=== PATIENT | male | born 1965 | race Caucasian/White ===

== ENCOUNTER 2021-01-14 09:38 | Outpatient (REF) | payer MEDICAID, SELFPAY ==
--- NOTE | ~2021-01-14 | US_ITS ---
EXAMINATION: US ABDOMEN COMPLETE CLINICAL INFORMATION: Abnormal findings of blood chemistry. COMPARISON: None. TECHNIQUE: Real-time imaging of the abdominal viscera. FINDINGS: PANCREAS: Slightly heterogeneous parenchyma without associated inflammatory change. ABDOMINAL AORTA: The proximal, mid, and distal segments are normal in caliber. INFERIOR VENA CAVA: Visualized portions are normal. LIVER: The liver is normal in size. The liver contour is normal. There is diffuse increased liver parenchymal echogenicity, consistent with hepatic steatosis. Focal fatty sparing adjacent to the gallbladder fossa. No focal hepatic lesion. There is no intrahepatic biliary duct dilatation seen. GALLBLADDER: Normal. The gallbladder is physiologically distended without evidence of stones, sludge, polyps, wall thickening or pericholecystic fluid. COMMON BILE DUCT: Normal in caliber measuring 1.0 cm in diameter. RIGHT KIDNEY: Normal. No hydronephrosis. No renal calculi or focal parenchymal lesions. The kidney measures 11.8 cm in maximum dimension. LEFT KIDNEY: Normal. No hydronephrosis. No renal calculi or focal parenchymal lesions. The kidney measures 12.4 cm in maximum dimension. SPLEEN: Normal. The spleen measures 10.7 cm in maximum dimension. FREE FLUID: None. US/US abdomen complete IMPRESSION: Hepatic steatosis. Foci of fatty sparing adjacent to gallbladder fossa. No concerning hepatic parenchymal lesion or biliary ductal dilatation.
== END 2021-01-14 09:39 | disposition home or self-care (01) ==
LOC: HO.US 09:38
PROVIDERS: PCP Internal Medicine; Visit Provider Internal Medicine
DX: R79.89 Other specified abnormal findings of blood chemistry (principal); Z86.19 Personal history of other infectious and parasitic diseases
CPT/HCPCS: 76700

== ENCOUNTER 2021-01-28 11:04 | Emergency (ER) | payer MEDICAID, SELFPAY ==
--- NOTE | ~2021-01-28 | US_ITS ---
EXAMINATION: US VENOUS ULTRASOUND WITH DOPPLER LOWER EXTREMITY, LEFT CLINICAL INFORMATION: Left lower extremity pain. COMPARISON: None TECHNIQUE: Ultrasound of the deep veins is performed from the hip to the calf with compression sonography and color and pulse Doppler assessment. Spectral analysis with color-flow imaging is performed. FINDINGS: There is normal venous compression and respiratory variation and augmented flow. The visualized common femoral vein, superficial femoral vein, profunda femoral vein, popliteal vein, and the trifurcation region shows no evidence of deep venous thrombosis. There is no significant popliteal fossa cyst. If the patient's symptoms persist, followup ultrasound in 5 days 7 days might be of value to exclude proximal propagation from a non-visualized calf vein. US/US venous duplex LE LT IMPRESSION: No evidence for deep venous thrombosis in the visualized veins of the left lower extremity.
[2021-01-28 12:00] VITALS: BP 139/86; PULSE 76; RESP 16; TEMP 36.3; O2SAT 98; BMI 32.3
--- NOTE | 2021-01-28 12:35 | ED_ITS ---
HPI - General Adult General Chief complaint: Extremity Problem Stated complaint: left calf pain Time Seen by Provider: 01/28/21 12:34 Source: patient Limitations: no limitations History of Present Illness HPI narrative: Patient complaining of worsening left-sided calf pain and swelling over the past 2 days. Pain increases with palpation and ambulation. Patient denies any trauma to the leg. Patient has a positive tobacco history. Patient has no history of DVTs in the past. Patient has been fully vaccinated for the COVID-19 vaccine. Patient does have a history of left-sided sciatica but this does feel different room. Patient works in [employer] and has chronic back pain in the past. No chest pain shortness of breath. Related Data Allergies Allergy/AdvReac Type Severity Reaction Status Date / Time No Known Allergies Allergy Verified 01/28/21 12:07 Review of Systems Constitutional: Constitutional: Denies chills, Denies fever(s), Denies headache(s) and Denies weakness ENT: Denies headache(s) and Denies sore throat Cardiovascular: Cardiovascular: Denies chest pain, Denies chest pain at rest, Denies chest pain with activity and Denies dyspnea Respiratory: Respiratory: Denies cough and Denies dyspnea Gastrointestinal: Gastrointestinal: Denies nausea and Denies vomiting Musculoskeletal: Musculoskeletal: Reports back pain, Denies myalgias and Denies tingling Comments: Left calf pain Neurologic: Denies headache(s), Denies tingling, Denies paresthesias and Denies weakness Psychiatric: Psychiatric: Reports no additional psychiatric complaints Hematologic/Lymphatic: Hematologic/Lymphatic: Denies easy bleeding and Denies easy bruising Allergic/Immunologic: Allergic/Immunologic: Denies urticaria PMFSH Past Medical History Attestation statement: The following information was validated with the patient. Medical History Hepatitis C No known health problems Social History Social History Advance Directives: No Advance Directives Information Provided: Yes Physical Exam Vital Signs: Vital Signs: Last Vital Signs Temp 97.4 F 01/28/21 12:00 Pulse 76 01/28/21 12:00 Resp 16 01/28/21 12:00 BP 139/86 01/28/21 12:00 Pulse Ox 98 01/28/21 12:00 Body Mass Index 32.3 vital signs have been reviewed as normal and appeared to be correct. Blood pressure normal. Heart rate normal. Respiration rate normal. Temperature normal. Oxygen saturation normal. Appearance: Alert. Oriented X3. No acute distress. Head: Normal external exam. Normocephalic. Atraumatic. Eyes: PERRLA. EOMI. Conjunctiva and sclera normal. Eyelids normal. ENT: Pharynx normal. Uvula midline. Moist mucous membranes. Neck: Soft full range of motion, no JVD CVS: Heart regular rate and rhythm no murmurs and rubs Respiratory: Breath sounds are clear to auscultation bilaterally. No accessory muscle use noted. Abdomen: Soft nontender no rebound or guarding positive bowel sounds Skin: Skin warm and dry. Normal skin color. Normal skin turgor. No rashes/lesions/lacerations noted. Extremities: Left calf positive tenderness question slight swelling sensations intact Neuro: Oriented X 3. No motor deficit. No sensory deficit. Reflexes normal. Course Course Course Narrative: Differential diagnosis: Left leg DVT Left calf strain Left leg sciatica Muscle spasm Duplex ultrasound of left lower extremity pending Medical Decision Making Imaging Data Venous US: Radiologist's impression: [address], [place] [id number] ReportSigned Patient: Joss LockMR#: [id number]: 1965Acct:[id number]/Sex: 55 / MADM Date: 01/28/21Loc: EDAttending Dr: Ordering Physician: Rafa Ayala Date of Service: 01/28/21 Procedure(s): US venous duplex [facility] Accession Number(s): [id number] cc: Rafa Ayala ~ EXAMINATION: US VENOUS ULTRASOUND WITH DOPPLER LOWER EXTREMITY, LEFT CLINICAL INFORMATION: Left lower extremity pain. COMPARISON: None TECHNIQUE: Ultrasound of the deep veins is performed from the hip to the calf with compression sonography and color and pulse Doppler assessment. Spectral analysis with color-flow imaging is performed. FINDINGS: There is normal venous compression and respiratory variation and augmented flow. The visualized common femoral vein, superficial femoral vein, profunda femoral vein, popliteal vein, and the trifurcation region shows no evidence of deep venous thrombosis. There is no significant popliteal fossa cyst. If the patient's symptoms persist, followup ultrasound in 5 days 7 days might be of value to exclude proximal propagation from a non-visualized calf vein. US/US venous duplex LE LT IMPRESSION: No evidence for deep venous thrombosis in the visualized veins of the left lower extremity. Dictated By:GIUSEPPE BLUM MDSigned By:<Electronically signed by GIUSEPPE BLUM MD in OV>01/28/21 1415 DD/ 1234TD/TT: Opening Machine Cleaner: Discharge Plan Discharge Clinical Impression: Strain of left calf muscle Patient Disposition: Home, Self-Care Instructions: Muscle Strain (ED) Additional Instructions: Ultrasound was negative for deep vein thrombosis Rest ice elevation Pain likely related to a strain in the left calf Referrals: Katie Lechuga [Emergency Nurse] - 2 days
== END 2021-01-28 14:49 | disposition home or self-care (01) ==
PROVIDERS: Emergency Provider Emergency Medicine
DX: S86.812A Strain of other muscle(s) and tendon(s) at lower leg level, left leg, initial encounter (principal); X50.3XXA Overexertion from repetitive movements, initial encounter; M79.662 Pain in left lower leg; R22.42 Localized swelling, mass and lump, left lower limb; Y93.89 Activity, other specified; Y92.69 Other specified industrial and construction area as the place of occurrence of the external cause; Y99.9 Unspecified external cause status
CPT/HCPCS: 93971; 99283; 99284

== ENCOUNTER 2021-04-01 09:02 | Outpatient (REF) | payer MEDICAID, SELFPAY ==
--- NOTE | 2021-04-01 | EMG_ITS ---
Left tibial and peroneal motor studies were performed. Left superficial peroneal and sural sensory studies were performed. Paraspinal muscles were tested and tibial H-reflex was obtained. Some limb muscles were also tested. Needle examination was difficult for him limiting its interpretation. 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 Superficial sensory peroneal study was also slow. No definite EMG finding was noted in paraspinals. This test was also somewhat limited because he did not tolerate it well. This combination of findings could result from predominantly motor chronic axonal peripheral neuropathy, but could also be from combination of right peroneal neuropathy and right lower lumbar radiculopathy. MD PILAR Vallejo/ISELA / [phone]
== END 2021-04-01 09:03 | disposition home or self-care (01) ==
LOC: HO.NEURO 09:02
PROVIDERS: Visit Provider Internal Medicine
DX: M54.32 Sciatica, left side (principal)
CPT/HCPCS: 95886; 95909

== ENCOUNTER 2021-05-14 13:28 | Outpatient (REF) | payer MEDICAID, SELFPAY ==
--- NOTE | ~2021-05-14 | CT_ITS ---
EXAMINATION: CT CHEST SCREENING CLINICAL INFORMATION: Nicotine dependence. COMPARISON: None. TECHNIQUE: Multidetector volumetric CT imaging of the chest is performed without contrast using low dose technique. Additional 2D coronal and sagittal reformatted images and axial 3D maximum intensity projection (MIP) images are generated on the CT workstation. This CT examination was performed using dose optimization techniques as appropriate, variously including the following: *Automated exposure control *Adjustment of mA and/or kV according to patient size (this includes techniques or standardized protocols for targeted exams where dose is matched to indication/reason for exam; i.e. extremities or head) *Use of iterative reconstruction technique DLP: 70 mGy-cm. FINDINGS: LUNGS: The lungs are expanded and clear of acute pneumonic process. There is a 3 mm nodule in left upper lobe posterior segment axial image 15/4, 3 mm nodule left upper lobe lateral segment image 15/4. No additional nodules seen. MEDIASTINUM: The thyroid lobes are symmetric and normal. Central trachea and the bronchi widely patent. The heart size and the great vessels are normal caliber. No abnormal lymphadenopathy seen. There is no periapical effusion. PLEURA: There is no pleural effusion. No pleural mass or thickening. AXILLA: No lymphadenopathy. UPPER ABDOMEN: Visualized liver, spleen, pancreas and bilateral adrenal glands are unremarkable. OSSEOUS STRUCTURES: No lytic or sclerotic process seen. There is mild ventral spondylosis lower dorsal spine. CT/CT lung screening IMPRESSION: Two 3 mm nodules in left upper lobe. ASSESSMENT: Lung-RADS category 2: Benign. RECOMMENDATION: Low-dose annual CT chest.
== END 2021-05-14 13:29 | disposition home or self-care (01) ==
LOC: HO.CT 13:28
PROVIDERS: PCP Internal Medicine; Visit Provider Physician Assistant Medical
DX: F17.210 Nicotine dependence, cigarettes, uncomplicated (principal)
CPT/HCPCS: 71271; G0296